=== PATIENT | female | born 1935 | race Caucasian/White ===

== ENCOUNTER 2023-05-25 16:56 | Emergency (ER) | payer MEDICARE ==
[~2023-05-25] VITALS: Ht 149.9 cm; Wt 47.2 kg
[2023-05-25 17:17] VITALS: PULSE 114; RESP 14; TEMP 98.2; O2SAT 100
[2023-05-25] MEDS ORDERED: NACL 0.9% 250 ML IV ONE (17:30)
[2023-05-25 17:46] LABS: BASOPHILS % (AUTO) 1.1 % (0.0-2.0); EOSINOPHILS # (AUTO) 0.1 K/uL (0-0.4); EOSINOPHILS % (AUTO) 2.6 % (0.0-4.0); HEMATOCRIT 35.6 % (36-48); HEMOGLOBIN 12.1 g/dL (12.0-16.0); LYMPHOCYTES # (AUTO) 0.7 K/uL (2.5-16.5); LYMPHOCYTES % (AUTO) 17.3 % (20.5-51.1); MEAN CORPUSCULAR HEMOGLOBIN 34 pg (27-31); MEAN CORPUSCULAR HGB CONC 34 g/dL (33-37); MONOCYTES # (AUTO) 0.4 K/uL (0.8-1.0); MONOCYTES % (AUTO) 8.6 % (1.7-9.3); NEUTROPHILS # (AUTO) 2.9 K/uL (1.8-7.7); NEUTROPHILS % (AUTO) 70.4 % (42.2-75.2); PLATELET COUNT (AUTO) 186 K/uL (140-450); RED BLOOD CELL COUNT(AUTO) 3.52 MIL/uL (4.20-5.40); WHITE BLOOD COUNT (AUTO) 4.1 K/uL (4.8-10.8)
[2023-05-25 18:00] LABS: ALANINE AMINOTRANSFERASE 58 U/L (12-78); ALBUMIN 3.9 g/dL (3.4-5.0); ALKALINE PHOSPHATASE 58 U/L (50-136); ANION GAP 14.9 (8-16); ASPARTATE AMINOTRANSFERASE 58 U/L (15-37); CALCIUM 9.1 mg/dL (8.5-10.1); CARBON DIOXIDE 24.2 mmol/L (21-32); CHLORIDE 103 mmol/L (98-107); CREATININE 1.2 mg/dL (0.6-1.3); GLUCOSE 91 mg/dL (74-106); POTASSIUM 4.1 mmol/L (3.5-5.1); SODIUM SERUM 138 mmol/L (136-145); TOTAL BILIRUBIN 1.1 mg/dL (0.0-1.0); TOTAL PROTEIN, SERUM 6.5 g/dL (6.4-8.2); UREA NITROGEN, BLOOD 31 mg/dL (7-18)
[2023-05-25] MEDS ORDERED: lisinopriL 20 MG TAB PO ONE (18:15)
[2023-05-25] MEDS ORDERED: FUROSEMIDE 40 MG/4 ML VIAL IVP ONE (18:15)
[2023-05-25 18:22] LABS: FLU A ANTIGEN negative (NEGATIVE); FLU B ANTIGEN negative (NEGATIVE)
[2023-05-25 18:58] LABS: APPEARANCE,URINE CLEAR (CLEAR); BILIRUBIN,URINE NEGATIVE (NEGATIVE); BLOOD, URINE NEGATIVE (NEGATIVE); COLOR,URINE YELLOW (YELLOW); LEUKOCYTE ESTERASE ,URINE NEGATIVE (NEGATIVE); NITRITE, URINE NEGATIVE (NEGATIVE); PH,URINE 5.5 (5.0-9.0); PROTEIN,URINE 1+ (NEGATIVE); UGLUCOSE NEGATIVE (NEGATIVE); UROBILINOGEN,URINE 0.2 EU/dL (0.2 - 1)
[2023-05-25] MEDS ORDERED: LABETALOL 20 MG/4 ML VIAL IVP ONE ×2 (19:00→19:45)
[2023-05-25] MEDS ORDERED: ASPIRIN 325 MG TAB PO ONE (19:45)
[2023-05-25] MEDS ORDERED: LOVENOX 1MG/KG Q24H SUBQ SCH (20:50)
[2023-05-25] MEDS ORDERED: LORazepam 0.5 MG TAB PO ONE (22:20)
[2023-05-25] MEDS ORDERED: ENOXAPARIN 60 MG/0.6 ML SYR SUBQ SCH (22:35)
[2023-05-25 23:05] VITALS: BP 162/99; PULSE 99; RESP 14; TEMP 98.1; O2SAT 98
== END 2023-05-25 23:05 | disposition short-term general hospital (02) ==
LOC: MED 16:56
DX: I50.9 Heart failure, unspecified (principal); Z20.822 Contact with and (suspected) exposure to COVID-19; I21.4 Non-ST elevation (NSTEMI) myocardial infarction; I35.0 Nonrheumatic aortic (valve) stenosis; I45.10 Unspecified right bundle-branch block; R94.31 Abnormal electrocardiogram [ECG] [EKG]; I13.10 Hypertensive heart and chronic kidney disease without heart failure, with stage 1 through stage 4 chronic kidney disease, or unspecified chronic kidney disease; N18.30 Chronic kidney disease, stage 3 unspecified; Z79.899 Other long term (current) drug therapy
CPT/HCPCS: 36415; 71045; 80053; 81003; 83880; 84484; 85025; 87426; 87804; 93005; 96372; 96374; 96375; 99285; J1650; J1940; J3490